=== PATIENT | female | born 1995 | race Caucasian/White ===

== ENCOUNTER 2025-05-05 13:06 | Emergency (ER) | payer MEDICAID ==
[~2025-05-05] VITALS: Ht 167.6 cm; Wt 60.0 kg
[2025-05-05 13:14] VITALS: TEMP 97.9
[2025-05-05 15:27] LABS: MEAN PLATELET VOLUME 8.8 FL (7.4-10.4); RED CELL DISTRIBUTION WIDTH 19.9 % (11.5-14.5)
[2025-05-05 15:39] LABS: CREATININE 0.68 MG/DL (0.40-0.90); TOTAL CARBON DIOXIDE 26.3 MMOL/L (24-32); eCRCL 112 ML/MIN; eGFR > 90 ML/MIN
--- NOTE | 2025-05-05 16:02 | ELECTROCARDIOGRAPH REPORT ---
[facility] Test Date: 2025-05-05 Test Time: 15:59:18 Pat Name: DENISE ELISHA Department: [facility] Patient ID: [facility]-[id number] Room: Gender: F [employer]: : 1995 Requested By: LADONNA RUIZ Order Number: [id number] Reading MD: Measurements Intervals [place] Rate: 65 P: 36 HI: 103 QRS: 80 QRSD: 92 T: 61 QT: 429 QTc: 447 Interpretive Statements Sinus rhythm Atrial premature complex Short HI interval Please click the below link to view image of tracing.
--- NOTE | 2025-05-05 16:08 | Physician Documentation ---
History of Present Illness General Chief Complaint: See Chief Complaint Stated Complaint: SZ Time Seen by MD: 15:51 OK to notify your PCP?: No Source: patient, family, RN notes reviewed Mode of Arrival: POV Exam Limitations: no limitations History of Present Illness Initial Comments 29-year-old female, with a history of dumping syndrome, pelvic congestion, anemia, and gastric bypass with esophagectomy, presents to the ED following an episode of whole body muscle contractions. Patient states she was about to get her blood drawn, and was feeling a little "emotional." She then began having visual aura and feels [the episode] coming on. Her muscles then suddenly locked up and she had urine incontinence. She states she was still alert during the episode and was able to speak a small amount. Most symptoms have since resolved but she continues to feel a little shaky ankle and generally weak. Patient reports she has had similar episodes for the last nine years, but they has been more frequent for the last eight months. This month she has had four such episodes, the last occurred while she was sitting down and eating at a restaurant. And some episodes she vomits which can be an issue given her history of esophagectomy. Episodes seem to occur during her menstrual period then she describes regular pain around her pelvic area, as if there is a band around her legs. She also describes some numbness of the lower extremities, all of which which she relates to pelvic congestion. Medication Reconciliation Allergies: Coded Allergies: No Known Allergies (Unverified , 05/05/25) Past Medical History Past Medical History: *GI/HEPATOBILIARY*, Anemia, *RENAL/* Past Surgical History: noncontributory, other Drug Use: none Lives In: Home Review of Systems All Other Systems at this time: Reviewed and Negative ROS As stated above in the HPI, otherwise all systems are reviewed and negative. Physical Exam Physical Exam Vital Signs: RN Vital Signs have been reviewed: Yes, Temperature: 97.9, Source: Temporal, Heart Rate: 83, Respiratory Rate: 15, BP: 119/71, Pulse Oximetry: 100, Weight: 60.000 Pulse Oximetry Reflects: adequate oxygenation Physical Exam VITALS: Reviewed and as above. GENERAL: Alert, no apparent distress. HEENT: Normocephalic, atraumatic, PERRL, EOMI, dry mucosa RESPIRATORY: Lungs clear, normal breath sounds, no respiratory distress. CHEST: No accessory muscle use, no retractions CV: Regular rate, rhythm, no edema, no murmur, No: JVD GI: Soft, non-tender, bowels sounds present, no rebound, guarding, or rigidity MUSCULOSKELETAL No deformities, no edema SKIN: Healed surgical incision over left neck. Warm and dry, no rash NEURO: Oriented x4, No motor or sensory deficit PSYCH: Normal mood and affect, no agitation Progress Results/Orders Reviewed/noted all lab results: Yes Results/Orders Completed Orders - LADONNA MALIN MD Stat Ekg (05/05/25 15:52) Vital Signs 05/05/25 05/05/25 13:14 16:27 Temp 97.9 Pulse 83 98 Resp 15 18 B/P (MAP) 119/71 145/87 Pulse Ox 100 98 Laboratory Tests Test 05/05/25 14:58 White Blood Count 6.8 Red Blood Count 4.66 Hemoglobin 8.6 L Hematocrit 28.0 L Mean Corpuscular Volume 60.2 L Mean Corpuscular Hemoglobin 18.4 L Mean Corpuscular Hemoglobin Concent 30.6 L Red Cell Distribution Width 19.9 H Platelet Count 332 Mean Platelet Volume 8.8 Neutrophils (%) (Auto) 73.4 Lymphocytes (%) (Auto) 19.2 L Monocytes (%) (Auto) 6.1 Eosinophils (%) (Auto) 0.7 Basophils (%) (Auto) 0.6 Neutrophils # (Auto) 5.0 Lymphocytes # (Auto) 1.3 Monocytes # (Auto) 0.4 Eosinophils # (Auto) 0.0 Basophils # (Auto) 0.0 CBC Comment Platelet Estimate Normal Red Blood Cell Morphology Perf Hypochromasia 3+ Basophilic Stippling Anisocytosis 2+ Microcytosis 2+ Tear Drop Cells Few Elliptocytes 2+ Sodium Level 141 Potassium Level 3.9 Chloride Level 106 Carbon Dioxide Level 26.3 Anion Gap 9 Blood Urea Nitrogen 12 Creatinine 0.68 Estimated GFR/1.73 m2 > 90 BUN/Creatinine Ratio 17.6 Glucose Level 100 Calcium Level 8.3 L Albumin 4.0 Chemistry Comments EKG/XRAY/CT/US/VASC/MRI EKG : Additional Comment 8219: EKG interpreted by myself to show NSR at a rate of 65bpm. Short WA interval. Normal axis. No STEMI. Medical Decision Making Findings 29-year-old female with what sounds like a vasovagal episode after blood was drawn she had a presyncope versus a syncopal event, the patient's EKG was reviewed. The patient's labs have been reviewed. The patient does have some chronic medical issues and does have some anemia. The patient's surveillance monitor was interpreted as a sinus rhythm her prior hospitalizations were reviewed she has a benign exam. The patient's chest x-ray was interpreted by me as showing a normal cardiac silhouette normal mediastinum and normal-appearing lung pina I interpreted as a normal chest x-ray I have also reviewed the radiologist's interpretation her pulse oximetry was interpreted as a normal pulse ox the patient is hemodynamically stable and at this time she will be discharged with instructions to follow up as an outpatient return for worsening of her symptoms. Departure Time of Disposition: 16:15 Disposition: 01 HOME / SELF CARE / HOMELESS Impression: Primary Impression: Near syncope Additional Impression: Anemia Qualified Codes: D64.9 - Anemia, unspecified Condition: Stable Discharge Instructions: Anemia, Near-Syncope, [id number] Additional Instructions: Continue to follow up with your specialists. Return to the ER for other concerns. Education Educated: Patient Educated regarding: diagnosis, treatment, need for follow up Signature Scribe Signature: Scribed for Ladonna Malin MD by Ferdinand Maya . 05/05/25 16:13 Attestation: The note accurately reflects work and decisions made by me.Ladonna Malin MD 05/06/25 19:04 LADONNA MALIN MD May 05, 2025 16:08 FERDINAND RUVALCABA May 05, 2025 16:17
[2025-05-05 16:20] LABS: ELLIPTOCYTES 2+; PLATELET ESTIMATE NORMAL
[2025-05-05 16:27] VITALS: BP 145/87; PULSE 98; RESP 18; O2SAT 98
== END 2025-05-05 16:34 | disposition home or self-care (01) ==
LOC: ER 13:07
DX: R55 Syncope and collapse (principal); D64.9 Anemia, unspecified
CPT/HCPCS: 36415; 80048; 85008; 85025; 93005; 99284

== ENCOUNTER 2025-05-31 07:32 | Outpatient (CLI) | payer MEDICAID ==
[2025-05-31] VITALS (19 sets, daily range): BP systolic 110–135; BP diastolic 56–96; PULSE 75–103
== END 2025-05-31 23:59 | disposition home or self-care (01) ==
LOC: CARD DIAG 07:32
PROVIDERS: ATTEND Internal Medicine Interventional Cardiology
DX: R55 Syncope and collapse (principal)
CPT/HCPCS: 93660